=== PATIENT | male | born 1990 | race Caucasian/White ===

== ENCOUNTER 2018-01-01 10:58 | Emergency (ER) | payer SELFPAY ==
[2018-01-01] MEDS ORDERED: TETRACAINE 0.5% OPHTH SOLUTION 4ML BOTTLE. (11:25)
[2018-01-01] MEDS ORDERED: FLUORESCEIN OPHTH TEST STRIP. (11:25)
[2018-01-01] MEDS: TETRACAINE 0.5% OPHTH SOLUTION 4ML BOTTLE. OU (11:30)
[2018-01-01] MEDS: FLUORESCEIN OPHTH TEST STRIP. OU (11:30)
== END 2018-01-01 12:10 | disposition home or self-care (01) ==
LOC: ER 10:58
DX: H53.143 Visual discomfort, bilateral (principal); H10.9 Unspecified conjunctivitis; F15.10 Other stimulant abuse, uncomplicated
CPT/HCPCS: 99283